=== PATIENT | female | born 1990 | race Caucasian/White ===

== ENCOUNTER 2017-02-16 04:41 | Emergency (ER) | payer OTHER ==
[~2017-02-16] VITALS: Ht 165.1 cm; Wt 124.7 kg
[~2017-02-16 04:41] MED LIST: BACTRIM DS TAB1 EACH PO; BIRTH CONTROL; CELEXA10 MG PO; ERYTHROMYCIN3.5 GM OD; KEFLEX500 MG PO; LEVOTHYROXINE25 MCG PO; MACROBID 100 M100 MG PO; NORCO 5-325 TA1 EACH PO; PRENATAL ONE T1 EACH PO; PRENATAL TABLE1 EAC1 PO; PYRIDIUM200 MG PO; TRAMADOL HCL50 MG PO; TYLENOL EXTRA500 MG PO; VITAMIN D400 UNI1 PO; ZOFRAN4 MG PO
== END 2017-02-16 08:49 | disposition home or self-care (01) ==
LOC: ED 04:41
DX: R10.32 Left lower quadrant pain (principal); R19.7 Diarrhea, unspecified; R11.0 Nausea; E03.9 Hypothyroidism, unspecified; Z79.899 Other long term (current) drug therapy; Z90.49 Acquired absence of other specified parts of digestive tract
CPT/HCPCS: 76830; 76856; 80053; 81001; 83690; 84703; 85025; 87491; 87591; 96374; 96375; 99284; J1170; J1885; J2405

== ENCOUNTER 2017-03-21 10:26 | Emergency (ER) | payer OTHER ==
[~2017-03-21] VITALS: Ht 165.1 cm; Wt 124.7 kg
[2017-03-21] MEDS ORDERED: TYLENOL325 MG PO (10:48)
== END 2017-03-21 11:00 | disposition home or self-care (01) ==
LOC: ED 10:26
DX: Z00.8 Encounter for other general examination (principal)

== ENCOUNTER 2019-05-13 20:10 | Emergency (ER) | payer OTHER ==
[~2019-05-13 20:10] MED LIST changes: +ACETAMINOPHEN500 MG PO; +LEVONORG-ETH E1 EACH PO; +LEVOTHYROXINE200 MCG PO; +TYLENOL325 MG PO
== END 2019-05-13 20:30 | disposition left against medical advice (07) ==
LOC: ED 20:10
DX: Z53.21 Procedure and treatment not carried out due to patient leaving prior to being seen by health care provider (principal)

== ENCOUNTER 2019-07-19 22:51 | Emergency (ER) | payer OTHER ==
[~2019-07-19] VITALS: Ht 165.1 cm; Wt 95.2 kg
--- OUTSIDE RECORDS SUMMARY | 2019-07-19 22:54 | XMS ---
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 05/13/2019 20:10 - Other Details: LWBS CRITERIA MET - Group Notification CARE PROVIDERS There are no care providers on record at this time. Darek has no Care Guidelines for this patient. Ct VISIT COUNT (12 MO.) 3 [facility] TOTAL 3 NOTE: Visits indicate total known visits. ED/UCC VISIT TRACKING (12 MO.) 07/19/2019 22:52 [facility] [place] TYPE: Emergency COMPLAINT: - URINE PROBLEM 05/13/2019 20:10 [facility] [place] TYPE: Emergency COMPLAINT: - FACIAL SWELLING - LWOBS DIAGNOSES: - Proc/trtmt not crd out d/t pt lv bef seen by [facility] care prov 10/23/2018 05:43 [facility] [place] TYPE: Emergency COMPLAINT: - POSS UTI DIAGNOSES: - Acquired absence of other specified parts of digestive tract - Hypothyroidism, unspecified - Urinary tract infection, site not specified - Dysuria - Other correction (current) drug therapy INPATIENT VISIT TRACKING (12 MO.) No inpatient visits to display in this time frame [email or web address]
== END 2019-07-20 01:39 | disposition home or self-care (01) ==
LOC: ED 22:51
DX: N76.0 Acute vaginitis (principal); H10.9 Unspecified conjunctivitis; E03.9 Hypothyroidism, unspecified; F32.9 Major depressive disorder, single episode, unspecified
CPT/HCPCS: 81001; 87210; 87491; 87591; 99283

== ENCOUNTER 2020-10-13 07:31 | Emergency (ER) | payer OTHER ==
[~2020-10-13] VITALS: Ht 165.1 cm; Wt 95.2 kg
--- OUTSIDE RECORDS SUMMARY | 2020-10-13 07:36 | XMS ---
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 Care History Medical/Surgical 07/23/2019 [facility] \T\middot;\T\nbsp; PATIENT- [facility] ELIGIBLE \T\middot;\T\nbsp; PLEASE REFER PATIENT TO [facility] FOR NON EMERGENT MEDICAL NEEDS. \T\middot;\ T\nbsp; [facility] CAN SEE PATIENTS SAME DAY FOR APTS IF PATIENT CALLS FIRST THING IN THE MORNING. E.D. VISIT COUNT (12 MO.) [address] [place] [address] TOTAL 1 NOTE: Visits indicate total known visits. ED/UCC VISIT TRACKING (12 MO.) 10/13/2020 07:[address] [facility] [place] TYPE: Emergency COMPLAINT: - LOWER RT FLANK PAIN INPATIENT VISIT TRACKING (12 MO.) No inpatient visits to display in this time frame [id number]
[2020-10-13] MEDS ORDERED: CEPHALEXIN500 M1 PO (09:05)
[2020-10-13] MEDS ORDERED: ONDANSETRON ODT8 MG PO (09:05)
[2020-10-14] MEDS ORDERED: HYDROCODON-ACE1 EA10 PO (22:13)
== END 2020-10-13 09:30 | disposition home or self-care (01) ==
LOC: ED 07:31
DX: N39.0 Urinary tract infection, site not specified (principal); E03.9 Hypothyroidism, unspecified; Z79.899 Other long term (current) drug therapy
CPT/HCPCS: 80053; 81001; 84703; 85025; 87077; 87088; 87186; 96374; 96375; 99284-25; J1885; J2405; J7030

== ENCOUNTER 2020-10-14 19:56 | Emergency (ER) | payer OTHER ==
[~2020-10-14] VITALS: Ht 165.1 cm; Wt 106.0 kg
[~2020-10-14 19:56] MED LIST changes: +CEPHALEXIN500 M1 PO; +ONDANSETRON ODT8 MG PO
--- OUTSIDE RECORDS SUMMARY | 2020-10-14 20:02 | XMS ---
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 PHONE: [phone] Darek has no Care Guidelines for this patient. Care History Medical/Surgical 07/23/2019 [facility] \T\middot;\T\nbsp; PATIENT- [facility] ELIGIBLE \T\middot;\T\nbsp; PLEASE REFER PATIENT TO [facility] FOR NON EMERGENT MEDICAL NEEDS. \T\middot;\ T\nbsp; [facility] CAN SEE PATIENTS SAME DAY FOR APTS IF PATIENT CALLS FIRST THING IN THE MORNING. E.D. VISIT COUNT (12 MO.) 2 [facility]. TOTAL 2 NOTE: Visits indicate total known visits. ED/UCC VISIT TRACKING (12 MO.) 10/14/2020 19:57 [facility] [place] TYPE: Emergency COMPLAINT: - RT FLANK PAIN/FEVER 10/13/2020 07:32 [facility] [place] TYPE: Emergency COMPLAINT: - LOWER RT FLANK PAIN INPATIENT VISIT TRACKING (12 MO.) No inpatient visits to display in this time frame [email or web address]
[2020-10-14] MEDS ORDERED: HYDROCODON-ACE1 EA10 PO (22:13)
== END 2020-10-14 22:28 | disposition home or self-care (01) ==
LOC: ED 19:56
DX: N12 Tubulo-interstitial nephritis, not specified as acute or chronic (principal); N20.0 Calculus of kidney; E03.9 Hypothyroidism, unspecified; Z79.899 Other long term (current) drug therapy
CPT/HCPCS: 71046; 74176; 80053; 81001; 83605; 84703; 85025; 87040; 87088; 96365; 96375; 99284-25; J0696; J1170; J2405; J7030